=== PATIENT | male | born 1985 | race Caucasian/White ===

== ENCOUNTER 2019-02-17 14:56 | Emergency (ER) | payer SELFPAY ==
[~2019-02-17] VITALS: Ht 172.7 cm; Wt 86.2 kg
--- NOTE | 2019-02-17 14:59 | NUR ---
PATIENT BIBA TO BED 5 AT THIS TIME, [place] [employer] AT BEDSIDE.
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
[2019-02-17 15:10] VITALS: BP 145/80
[2019-02-17 15:35] LABS: BASOPHILS % (AUTO) 0.3 % (0.0-2.0); HEMATOCRIT 42.8 % (36-52); HEMOGLOBIN 14.5 g/dL (12.0-18.0); LYMPHOCYTES # (AUTO) 0.8 K/uL (2.0-11.5); LYMPHOCYTES % (AUTO) 5.5 % (20.5-51.1); MEAN CORPUSCULAR HEMOGLOBIN 32 pg (27-31); MEAN CORPUSCULAR HGB CONC 34 g/dL (33-37); MEAN CORPUSCULAR VOLUME 93.2 fL (80-94); MONOCYTES % (AUTO) 7.1 % (1.7-9.3); NEUTROPHILS # (AUTO) 12.3 K/uL (1.8-7.7); NEUTROPHILS % (AUTO) 87.1 % (42.2-75.2); PLATELET COUNT (AUTO) 315 K/uL (140-450); RED BLOOD CELL COUNT(AUTO) 4.59 MIL/uL (4.20-6.10); RED CELL DISTRIBUTION WIDTH 14.3 % (11.6-13.7); WHITE BLOOD COUNT (AUTO) 14.1 K/uL (4.8-10.8)
[2019-02-17 16:12] LABS: ANION GAP 16.3 (8-16); CARBON DIOXIDE 26.3 mmol/L (21-32); CHLORIDE 103 mmol/L (98-107); GFR ARICAN-AMERICAN 111 mL/min (>90); GLUCOSE 138 mg/dL (74-106); POTASSIUM 3.6 mmol/L (3.5-5.1); SODIUM SERUM 142 mmol/L (136-145); UREA NITROGEN, BLOOD 15 mg/dL (7-18)
[2019-02-17 16:16] LABS: ALBUMIN 4.6 g/dL (3.4-5.0); ASPARTATE AMINOTRANSFERASE 46 U/L (15-37); TOTAL BILIRUBIN 0.8 mg/dL (0.0-1.0)
[2019-02-17 16:17] LABS: ACETAMINOPHEN < 0.5 ug/ml (10-30); SALICYLATE < 2.8 mg/dL (2.8-20.0)
[2019-02-17 16:53] LABS: APPEARANCE,URINE CLEAR (CLEAR); BILIRUBIN,URINE 1+ (NEGATIVE); BLOOD, URINE 1+ (NEGATIVE); COLOR,URINE ORANGE (YELLOW); LEUKOCYTE ESTERASE ,URINE NEGATIVE (NEGATIVE); NITRITE, URINE NEGATIVE (NEGATIVE); UGLUCOSE NEGATIVE (NEGATIVE)
[2019-02-17 17:11] LABS: BARBITURATE, URINE NEG. ng/ml (NEG <=200); BENZODIAZEPINE, URINE NEG. ng/mL (NEG <=200); CANNABINOID, URINE NEG. ng/mL (NEG <=50); COCAINE, URINE NEG. ng/mL (NEG <=300); OPIATE, URINE NEG. ng/mL (NEG <=2000); PHENCYCLIDINE SCREEN,URINE NEG. ng/mL (NEG <=25)
[2019-02-17 17:18] LABS: RBC,URINE 0-5 /HPF (0-5)
--- NOTE | 2019-02-17 18:30 | NUR ---
PT AWAKE, NONVERBAL. RESTING IN BED.
--- NOTE | 2019-02-17 18:30 | NUR ---
ENCOURAGED TO CALL FAMILY WITH HIS CELL PHONE---PT ATTEMPTED TO TURN CELL PHONE ON; BATTERY. PT ALLOWED ME TO CHARGE HIS CELL PHONE IN NURSING STATION. PROVIDED MEAL WITH ICE WATER. CONTINUES TO WAIT FOR MD OLEA AND DISPO,. REMAINS NON VERBAL FOR MOST PART
--- NOTE | 2019-02-17 19:18 | NUR ---
REPORT GIVEN TO LINDSAY REYES; TRANSFER OF CARE AT THIS TIME.
--- NOTE | 2019-02-17 19:29 | NUR ---
DR. SLOAN BEDSIDE EVALUATING PT
[2019-02-17 19:47] VITALS: BP 147/88
--- NOTE | 2019-02-17 19:49 | NUR ---
Patient discharged with v/s stable. Written and verbal after care instructions given and explained. Pt nonverbal. Ambulatory with steady gait. Offered a sandwich. All questions addressed prior to discharge.
== END 2019-02-17 19:46 | disposition home or self-care (01) ==
LOC: MED 14:56
DX: F15.10 Other stimulant abuse, uncomplicated (principal)
CPT/HCPCS: 36415; 80053; 80305; 81001; 85025; 87086; 99283; G0480; G0482; 81003; C1758

== ENCOUNTER 2019-11-24 20:14 | Emergency (ER) | payer MEDICAID ==
[~2019-11-24] VITALS: Ht 165.1 cm; Wt 81.6 kg
[2019-11-24 20:17] VITALS: BP 118/71
--- NOTE | 2019-11-24 20:17 | NUR ---
PT BIBA TO ER BED 07
[2019-11-24] MEDS ORDERED: NACL 0.9% 1,000 ML IV ONE (20:25)
--- NOTE | 2019-11-24 20:47 | NUR ---
34 Y/O MALE BIB [facility] C/O ALOC X1 MONTH. GCS 14. AAOX2 (PLACE AND SELF). PT STATING REMARKS "THEYRE TRYING TO GET ME" "ARE YOU GOING TO KILL ME". PARANOID BEHAVIOR NOTED. DENIES SI/DENIES HOMICIDAL THOUGHTS. PT REPORTS HE IS HEARING VOICES BUT UNABLE TO TELL ME WHAT THEYRE SAYING. RESP EVEN AND UNLABORED. VSS. LUMP NOTED ON RIGHT SIDE OF PTS HEAD, PT STATES IT IS OLD. PERRLA, 3MM. DENIES ANY ALCOHOL OR DRUG USE. SKIN INTACT. PMH: SCHIZOPHRENIA, BIPOLAR
[2019-11-24 21:08] LABS: BASOPHILS # (AUTO) 0.1 K/uL (0.00-0.22); BASOPHILS % (AUTO) 0.9 % (0.0-2.0); EOSINOPHILS # (AUTO) 0.2 K/uL (0-0.4); EOSINOPHILS % (AUTO) 2.9 % (0.0-4.0); HEMATOCRIT 44.1 % (36-52); HEMOGLOBIN 14.8 g/dL (12.0-18.0); LYMPHOCYTES # (AUTO) 1.4 K/uL (2.0-11.5); LYMPHOCYTES % (AUTO) 19.7 % (20.5-51.1); MEAN CORPUSCULAR HEMOGLOBIN 32 pg (27-31); MEAN CORPUSCULAR HGB CONC 34 g/dL (33-37); MEAN CORPUSCULAR VOLUME 94.5 fL (80-94); MONOCYTES # (AUTO) 0.4 K/uL (0.8-1.0); MONOCYTES % (AUTO) 6.1 % (1.7-9.3); NEUTROPHILS # (AUTO) 5.1 K/uL (1.8-7.7); NEUTROPHILS % (AUTO) 70.4 % (42.2-75.2); PLATELET COUNT (AUTO) 312 K/uL (140-450); RED BLOOD CELL COUNT(AUTO) 4.67 MIL/uL (4.20-6.10); RED CELL DISTRIBUTION WIDTH 13.8 % (11.6-13.7); WHITE BLOOD COUNT (AUTO) 7.3 K/uL (4.8-10.8)
[2019-11-24 21:28] LABS: ACETAMINOPHEN < 0.5 ug/ml (10-30); ALBUMIN 4.8 g/dL (3.4-5.0); ANION GAP 10.9 (8-16); ASPARTATE AMINOTRANSFERASE 18 U/L (15-37); CARBON DIOXIDE 28.4 mmol/L (21-32); CHLORIDE 102 mmol/L (98-107); CREATININE 1.1 mg/dL (0.6-1.3); GFR ARICAN-AMERICAN 99 mL/min (>90); GLUCOSE 130 mg/dL (74-106); POTASSIUM 3.3 mmol/L (3.5-5.1); SALICYLATE < 2.8 mg/dL (2.8-20.0); SODIUM SERUM 138 mmol/L (136-145); TOTAL BILIRUBIN 0.8 mg/dL (0.0-1.0); UREA NITROGEN, BLOOD 15 mg/dL (7-18)
[2019-11-24 21:30] LABS: BARBITURATE, URINE NEGATIVE ng/ml (NEG <=200); BENZODIAZEPINE, URINE NEGATIVE ng/mL (NEG <=200)
[2019-11-24 21:34] LABS: CANNABINOID, URINE NEGATIVE ng/mL (NEG <=50); COCAINE, URINE NEGATIVE ng/mL (NEG <=300); OPIATE, URINE NEGATIVE ng/mL (NEG <=2000); PHENCYCLIDINE SCREEN,URINE NEGATIVE ng/mL (NEG <=25)
--- NOTE | 2019-11-24 21:50 | NUR ---
TELEPSYCH CONSULT INITIATED PER ER MD Yasmany SLOAN
--- NOTE | 2019-11-24 22:00 | NUR ---
PT SEATED UPRIGHT IN BED. PT IS QUIET BUT OBSERVANT OF SURROUNDINGS. PT COPERATIVE WITH CARE. BEDRAILS X2 UP. ALL SAFETY MEASURES IN PLACE. WILL COTNINUE TO MONITOR.
--- NOTE | 2019-11-24 22:36 | NUR ---
TELEPSYCH DOCTOR SPEAKING WITH PATIENT
--- NOTE | 2019-11-24 22:41 | NUR ---
HATTIE PADGETT CALLED FOR 5150 HOLD EVALUATION
--- NOTE | 2019-11-24 22:43 | NUR ---
PT TO BE PLACED ON 5150 HOLD PER TELEPSYCH MD. PT REFUSING TO DISROBE AND RELEASE BELONGINGS.
--- NOTE | 2019-11-24 22:51 | NUR ---
HATTIE OSBORN AT BEDSIDE
--- NOTE | 2019-11-24 22:57 | NUR ---
CALLED TELEPSYCH TO PLACE PATIENT BACK IN QUEUE FOR REEVALUATION.
--- NOTE | 2019-11-24 22:57 | NUR ---
PER HATTIE [place]IN[place] PD PT DOES NOT MET REQUIREMENTS FOR 5150 HOLD THEREFORE HOLD WAS NOT WRITTEN. DR. SLOAN MADE AWARE.
--- NOTE | 2019-11-24 23:05 | NUR ---
PT AWAKE AND ALERT. PT STATES "I JUST CAME HERE FOR HELP. HELP ME." PT RESPONDS APPROPIATLEY TO QUESTIONS TO ASSESS MENTATION. PT ABLE TO VERBALIZE CURRENT LOCATION, SITUATION, AND CAN IDENTIFY SELF. HE MAKES HIS NEEDS KNOWN- ASKED FOR FOOD AND WATER WHICH WAS PROVIDED TO HIM. WILL CONTINUE TO MONITOR.
--- NOTE | 2019-11-24 23:41 | NUR ---
PT ATTEMPTED TO PULL OUT IV LINE AFTER SEVERAL WARNINGS AGAINST IT. IV LINE RESECURED.
[2019-11-24 23:42] VITALS: BP 110/72
--- NOTE | 2019-11-25 01:00 | NUR ---
PT UP FOR DISCHARGE, FAMILY WAITING IN LOBBY TO PROVIDE TRANSPORTATION HOME.
--- NOTE | 2019-11-25 01:02 | NUR ---
RECEIVED CONTRADICTORY FAX REPORT FROM [facility] [place] TELEMED DR RASMUSSEN -- REPORT STATES "NO ACUTE SUCIDE RISK AT TIME OF ASSESMENT" AND "NO ACUTE HOMOCIDE RISK AT TIME OF ASSESSMENT" HOWEVER DR RASMUSSEN IS RECCOMENDING INPATIENT PSYCHIATRY PLACEMENT. SPOKE WITH DR SLOAN, DR SLOAN IS STATING THAT THE PATIENT IS SAFE FOR DISCHARGE TO HOME. FAMILY IS PRESENT AND WILLING TO TAKE PATIENT HOME. PT DENIES SUICIDAL AND HOMICIDAL IDEATION. PT IS ALERT TO NAME, EVENT, BIRTHDAY.
--- NOTE | 2019-11-25 01:10 | NUR ---
Patient discharged with v/s stable. Written and verbal after care instructions given and explained. Patient verbalized understanding. Ambulatory with steady gait. All questions addressed prior to discharge. Advised to follow up with PMD.
--- NOTE | 2019-11-25 01:10 | NUR ---
PT RELEASED INTO THE CARE OF HIS PARENTS.
== END 2019-11-25 01:10 | disposition home or self-care (01) ==
LOC: MED 20:14
DX: R41.82 Altered mental status, unspecified (principal); F15.10 Other stimulant abuse, uncomplicated; F20.9 Schizophrenia, unspecified
CPT/HCPCS: 36415; 80053; 80305; 85025; 93005; 99285; G0480; G0482; J7030

== ENCOUNTER 2020-03-20 14:35 | Emergency (ER) | payer MEDICAID ==
[~2020-03-20] VITALS: Ht 170.2 cm; Wt 84.8 kg
[2020-03-20 14:42] VITALS: BP 147/68
--- NOTE | 2020-03-20 14:59 | NUR ---
PT TO BED 4
[2020-03-20] MEDS ORDERED: KETOROLAC 60 MG/2 ML VIAL IM ONE (15:15)
--- NOTE | 2020-03-20 15:33 | NUR ---
34 Y/O MALE C/O LEFT FIRST TOE PAIN THAT BEGAN 3 WEEKS AGO. PT UNSURE TO WHAT HAPPENED TO TOE, DENIES ANY MAJOR INJURY. NO DEFORMITY NOTED. PEDAL PULSES PRESENT IN BLE. SKIN INTACT.
--- NOTE | 2020-03-20 16:25 | NUR ---
pt demonstrates proper use of crutches
[2020-03-20 16:54] VITALS: BP 147/68
--- NOTE | 2020-03-20 16:54 | NUR ---
Patient discharged with v/s stable. Written and verbal after care instructions given and explained. Patient alert, oriented and verbalized understanding of instructions. Ambulatory with steady gait. All questions addressed prior to discharge. ID band removed. Patient advised to follow up with PMD. Rx of FLEXIRIL, NAPROSYN given. Patient educated on indication of medication including possible reaction and side effects. Opportunity to ask questions provided and answered.
== END 2020-03-20 16:54 | disposition home or self-care (01) ==
LOC: MED 14:35
DX: M79.675 Pain in left toe(s) (principal); M25.511 Pain in right shoulder; K21.9 Gastro-esophageal reflux disease without esophagitis; Z90.49 Acquired absence of other specified parts of digestive tract; Z88.5 Allergy status to narcotic agent; Z88.8 Allergy status to other drugs, medicaments and biological substances
CPT/HCPCS: 73030; 73630; 96372; 99284; J1885; Q0092